=== PATIENT | female | born 1965 | race Caucasian/White ===

== ENCOUNTER 2023-02-23 22:42 | Emergency (ER) | payer SELFPAY ==
[~2023-02-23] VITALS: Ht 175.3 cm; Wt 50.0 kg
[2023-02-23 22:49] VITALS: BP 108/75; PULSE 97; RESP 16; TEMP 97.8; O2SAT 97
[2023-02-24] MEDS ORDERED: SODIUM CHLORIDE 0.9% 1,000 ML IV ONE (00:45)
== END 2023-02-24 03:49 | disposition home or self-care (01) ==
LOC: ER 22:42
DX: F10.129 Alcohol abuse with intoxication, unspecified (principal); I10 Essential (primary) hypertension; Y90.9 Presence of alcohol in blood, level not specified
CPT/HCPCS: 99283; 96360; J7030